=== PATIENT | female | born 1995 | race Caucasian/White ===

== ENCOUNTER 2021-03-20 21:23 | Emergency (ER) | payer OTHER ==
[2021-03-20] MEDS ORDERED: Sodium Chloride 0.9% 10 ML Syringe FLUSH PRN (21:56)
[2021-03-20] MEDS ORDERED: Acetaminophen/HYDROcodone 325-5 MG Tab PO ONE (22:22)
== END 2021-03-20 23:53 | disposition home or self-care (01) ==
LOC: JD.ED 21:23
DX: N93.9 Abnormal uterine and vaginal bleeding, unspecified (principal); Z88.8 Allergy status to other drugs, medicaments and biological substances
CPT/HCPCS: 36415; 80053; 84703; 85025; 86850; 86900; 86901; 99284; A9270